=== PATIENT | female | born 1950 | race Asian ===

== ENCOUNTER 2019-11-19 11:44 | Inpatient (IN) | payer MEDICAID, MEDICARE, OTHER ==
[2019-11-19 12:18] VITALS: BP 148/79
[2019-11-19] MEDS ORDERED: Magnesium Hydroxide (MOM) 30 mL UDC PO PRN (12:38)
[2019-11-19] MEDS ORDERED: Acetaminophen 500 MG TAB PO PRN (12:38)
[2019-11-19] MEDS ORDERED: Maalox 30 mL Cup PO PRN (12:38)
[2019-11-19 15:37] LABS: CHOLESTEROL 208 mg/dL (<200); LDL CHOLESTEROL 122 mg/dL (0-129); TRIGLYCERIDES 347 mg/dL (30-150)
[2019-11-19] MEDS ORDERED: GLUCAGON HCl 1 MG KIT IM PRN (19:33)
--- NOTE | 2019-11-19 21:54 | Psychiatric Evaluation ---
DATE OF SERVICE: 11/19/2019 IDENTIFYING INFORMATION: The patient is a 69-year-old female. CHIEF COMPLAINT: No answer. I don't know." HISTORY OF PRESENT ILLNESS: The patient is a poor historian. The patient was admitted on a hold for danger to others. She was agitated, striking out at staff, noncompliant, non-redirectable, and conserved by public guardian of the [facility] with medical history of type 2 diabetes, asthma, hyperlipidemia, hypertension, cardiac arrhythmia. She has a history of schizophrenia, major depression. The patient was fully ambulatory and independent with her ADLs with clear speech. The patient was oriented x2, disorganized thoughts upon admission. Poor eye contact, labile, angry, hostile, argumentative, resistant to care, loud, paranoid. When I tried talk to the patient, she was very irritable, answered most questions, "I don't know". She can tell me where she is, what the date, why she is here. She reports she does not sleep well, eats well. She denies prior suicide attempt; however, she is a poor historian. PAST PSYCHIATRIC HISTORY: Schizophrenia and depression. The patient with history of agitation, striking at staff, aggressive. She is conserved by the public guardian. MEDICAL HISTORY: Deferred to Dr. De Leon. ALLERGIES: THE PATIENT IS ALLERGIC TO AMANTADINE. SUBSTANCE ABUSE HISTORY: The patient denies; however, she is a poor historian. FAMILY AND SOCIAL HISTORY: The patient reports she has two girls one is 32 and could not tell me the other girl, but she cannot tell me her age. The patient was unable to tell if she has any family psychiatric disorder, cannot tell me how far she went to school. She was not answering, internally preoccupied. MENTAL STATUS EXAMINATION: The patient is appropriately dressed, not very groomed. She was loud, irritable, answering most questions, "I don't know or would not answer." She is, why she is here, where she is the date, ____ for her being here. She denies prior suicide attempts. Denies substance abuse; however, she is a poor historian. She is not sleeping, not eating. She was striking at staff. She was chocking at staff, calling the staff names, calling them bitches. She is unpredictable, impulsive, and unable to participate in meaningful conversation. Therefore, I cannot test her memory and concentration and intelligence because of her psychosis and poor cooperation. When asked about suicide and homicide, she denies this is a poor historian. Her insight about her illness is poor, does not realize about her problem s. Judgment is poor with her psychotic, agitated behavior. IMPRESSION: Schizoaffective disorder, bipolar type. MEDICAL DIAGNOSIS: As per medical doctor. ASSETS: She is accepting treatment. Negative poor coping skills, psychotic, unable to make safe plan for self-care. PLAN: The patient will be started back on her medication, which is olanzapine and Depakote. We will do group therapy, milieu therapy, and individual therapy. ESTIMATED LENGTH OF STAY: 3-7 days. DISCHARGE CRITERIA: Decreasing psychosis, agitation after discharge, outpatient treatment. JOB# [id number]
[2019-11-20] MEDS ORDERED: INSULIN LISPRO SLIDING SCALE 100 UNITS/ML UNIT SUBQ SCH (07:30)
[2019-11-20 08:06] LABS: A1C 11.8 % (4.8-5.6)
[2019-11-20] MEDS: Nicotine 14 mg/24 hr Tdm TD SCH (08:38)
[2019-11-20] MEDS: Multivitamin Tab PO SCH (08:38)
[2019-11-20] MEDS ORDERED: GLUCAGON HCl 1 MG KIT IM PRN (11:14)
[2019-11-20] MEDS: INSULIN LISPRO SLIDING SCALE 100 UNITS/ML UNIT SUBQ SCH ×2 (11:23→17:21)
--- NOTE | 2019-11-20 21:32 | Progress Notes ---
DATE: 11/20/2019 IDENTIFYING DATA: A 69-year-old female who presents agitated, striking out at staff, medication compliant and redirectable. Today on [id number] evaluation, the patient reports that she has no idea why she is here. When attempting to validate her emotions and redirecting her, what led to the hospitalization, she becomes more agitated, mostly looking at the floor, disengaged in the interview. CURRENT MEDICATIONS: Reconciliation review includes Depakote and olanzapine 15 b.i.d. MENTAL STATUS EXAMINATION: Poor historian, disorganized thought process, derails in conversation. ASSESSMENT AND PLAN: History of schizoaffective disorder. His current medication was recently resumed without complications or side effects. We will continue monitoring and evaluating, and obtain more collateral baseline information. She continues to be impulsive and agitated. JOB# [id number]
[2019-11-21] MEDS: INSULIN LISPRO SLIDING SCALE 100 UNITS/ML UNIT SUBQ SCH ×3 (07:05→16:40)
[2019-11-21] MEDS: Multivitamin Tab PO SCH (09:05)
[2019-11-21] MEDS: Nicotine 14 mg/24 hr Tdm TD SCH (09:29)
--- NOTE | 2019-11-21 10:20 | Progress Notes ---
DATE: 11/21/[address] Auguste. Today on [id number] evaluation ____ the patient reports that everything is fine and then within a few minutes later, the patient starts pacing after the medical doctor, needs a lot of redirection, easily agitated, anger. MENTAL STATUS EXAMINATION: Unpredictable, labile, easily agitated, at times verbally aggressive. ASSESSMENT AND PLAN: Dementia with behavior disturbances, who continues to be unpredictable as evident by the patient's lack of impulse control, ____ irritability and needs redirection. JOB# [id number]
[2019-11-21] MEDS ORDERED: Insulin Glargine 100 units/ml 10ml Vial SUBQ STA (13:14)
--- NOTE | 2019-11-21 13:14 | History & Physical ---
ADMIT DATE: CHIEF COMPLAINT: Agitation. HISTORY OF PRESENT ILLNESS: We have a 69-year-old female with diabetes, hypertension, who was transferred here for agitation and psychosis. The patient has diabetes, history of cardiac arrhythmia. The patient denies any chest pain, shortness of breath. No nausea, vomiting, abdominal pain, diarrhea. PAST MEDICAL HISTORY: 1. Diabetes. 2. Hypertension. 3. History of cardiac arrhythmia, on amiodarone. PAST SURGICAL HISTORY: None. MEDICATIONS: List reviewed. ALLERGIES: None. SOCIAL HISTORY: Tobacco, IV drugs, ETOH negative. PHYSICAL EXAMINATION: VITAL SIGNS: Temperature is 97.5, pulse 72, respirations 20, blood pressure is 130/60. HEENT: Normocephalic, atraumatic head exam. NECK: Supple. CARDIOVASCULAR: Regular rate and rhythm. LUNGS: Decreased breath sounds. ABDOMEN: Soft, nontender. EXTREMITIES: No edema, cyanosis or clubbing. Cranial nerve exam grossly intact ASSESSMENT AND PLAN: 1. Diabetes. 2. Hypertension. 3. Cardiac arrhythmia. 4. Hyponatremia. 5. Nicotine dependency. The patient will be continued on Levemir 40 units subcutaneous daily. The patient will continue with Accu-Cheks q.a.c. and at bedtime. The patient will continue sodium tablets 2 grams p.o. b.i.d. for the hyponatremia. JOB# [id number] ANGELES
[2019-11-21] MEDS ORDERED: Insulin Glargine 100 units/ml 10ml Vial SUBQ SCH (13:15)
[2019-11-21] MEDS ORDERED: Non-Formulary Item 1 EA (Glipizide [Glipizide] 10 MG) PO SCH (16:30)
[2019-11-21] MEDS: Insulin Detemir 100 units/mL 10mL Vial SUBQ SCH (21:56)
[2019-11-22] MEDS: INSULIN LISPRO SLIDING SCALE 100 UNITS/ML UNIT SUBQ SCH ×4 (06:35→16:18)
[2019-11-22] MEDS: Multivitamin Tab PO SCH (08:12)
[2019-11-22] MEDS: Nicotine 14 mg/24 hr Tdm TD SCH (08:16)
--- NOTE | 2019-11-22 12:07 | Progress Notes ---
DATE: 11/22/2019 Case was discussed with staff of the patient, reviewed records. The patient continues to be confused, continues to need redirection. Continues to have poor insight, unable to tell me the reason for her coming here. The patient apparently was very agitated, aggressive prior to her coming here, striking out at staff, noncompliant, non-redirectable. She is compliant with the medication with no side effects, no sedation, no nausea, no extrapyramidal symptoms. Continues to look disheveled, disorganized, internally preoccupied, but she can carry on a conversation better, was restarted back on her medication, Depakote 125 mg twice a day. She is also diabetic. Also, many medication of her medical condition, metformin, insulin. She is on Zyprexa 10 mg twice a day. No side effects with the medication, no sedation, no nausea, no extrapyramidal symptoms. We will continue outpatient group therapy, milieu therapy, adjust medication as needed. [facility]# [id number]
[2019-11-22 13:44] LABS: % NEUTROPHILS 61.3 % (40-70); EOSINOPHILS % (AUTO) 1.7 % (0-4); HEMATOCRIT 39.6 % (36-48); HEMOGLOBIN 13.3 g/dL (12.0-16.0); LYMPHOCYTES % (AUTO) 26.1 % (20.5-51.5); MEAN CORPUSCULAR HEMOGLOBIN 31 pg (27-31); MEAN CORPUSCULAR HGB CONC 34 % (32-36); MEAN CORPUSCULAR VOLUME 94 fL (79.0-98.0); MONOCYTES % (AUTO) 9.7 % (1.7-9.3); PLATELET COUNT 439 K/uL (130-430); RED BLOOD COUNT 4.24 MIL/uL (4.2-6.2); WHITE BLOOD COUNT 7.4 K/uL (4.8-10.8)
[2019-11-22 13:45] LABS: BASOPHILS # (AUTO) 0.1 K/uL (0.0-0.2); BASOPHILS % (AUTO) 1.2 % (0.0-2.0); EOSINOPHILS # (AUTO) 0.1 K/uL (0.0-0.4); LYMPHOCYTES # (AUTO) 1.9 K/uL (1.0-5.5); MONOCYTES # (AUTO) 0.7 K/uL (0.0-1.0); NEUTROPHILS # (AUTO) 4.6 K/uL (1.8-7.7)
[2019-11-22 13:56] LABS: CREATININE - SERUM 0.68 mg/dL (0.70-1.30); TOTAL PROTEIN,SERUM 8.2 g/dL (6.4-8.3)
[2019-11-22 13:57] LABS: BILIRUBIN,TOTAL 0.2 mg/dL (0.0-1.0)
--- NOTE | 2019-11-22 14:52 | Internal Medicine Prog Note ---
Internal Medicine Subjective - Subjective Service Date: 11/22/19 Patient seen and examined:: without staff Patient is:: awake Per staff patient has:: no adverse event, no episodes of fall (no polyuria, no polyphagia, no polydypsia) Internal Medicine Objective - Results Result Diagrams: 11/22/19 09:34 11/22/19 09:34 Recent Labs: Laboratory Last Values WBC 7.4 K/uL (4.8-10.8) 11/22/19 09:34 RBC 4.24 MIL/uL (4.2-6.2) 11/22/19 09:34 Hgb 13.3 g/dL (12.0-16.0) 11/22/19 09:34 Hct 39.6 % (36-48) 11/22/19 09:34 MCV 94 fL (79.0-98.0) 11/22/19 09:34 MCH 31 pg (27-31) 11/22/19 09:34 MCHC 34 % (32-36) 11/22/19 09:34 RDW 14.0 % (9.0-15.0) 11/22/19 09:34 Plt Count 439 K/uL (130-430) H 11/22/19 09:34 MPV 8.7 fl (7.4-10.4) 11/22/19 09:34 Neut % (Auto) 61.3 % (40-70) 11/22/19 09:34 Lymph % (Auto) 26.1 % (20.5-51.5) 11/22/19 09:34 Coffey % (Auto) 9.7 % (1.7-9.3) H 11/22/19 09:34 Eos % (Auto) 1.7 % (0-4) 11/22/19 09:34 Baso % (Auto) 1.2 % (0.0-2.0) 11/22/19 09:34 Neut # (Auto) 4.6 K/uL (1.8-7.7) 11/22/19 09:34 Lymph # (Auto) 1.9 K/uL (1.0-5.5) 11/22/19 09:34 Coffey # (Auto) 0.7 K/uL (0.0-1.0) 11/22/19 09:34 Eos # (Auto) 0.1 K/uL (0.0-0.4) 11/22/19 09:34 Baso # (Auto) 0.1 K/uL (0.0-0.2) 11/22/19 09:34 Sodium 123 mmol/L (136-145) L 11/22/19 09:34 Potassium 5.0 mmol/L (3.5-5.1) 11/22/19 09:34 Chloride 90 mmol/L (98-107) L 11/22/19 09:34 Carbon Dioxide 26 mmol/L (23-29) 11/22/19 09:34 Anion Gap 12 (5-15) 11/22/19 09:34 BUN 20 mg/dL (8-21) 11/22/19 09:34 Creatinine 0.68 mg/dL (0.70-1.30) L 11/22/19 09:34 Glucose 288 mg/dL (70-99) H 11/22/19 09:34 POC Glucose 352 MG/DL (70 - 105) H 11/22/19 11:02 Calcium 10.0 mg/dL (8.4-10.2) 11/22/19 09:34 Total Bilirubin 0.2 mg/dL (0.0-1.0) 11/22/19 09:34 AST 44 U/L (10-37) H 11/22/19 09:34 ALT 59 U/L (12-78) 11/22/19 09:34 Alkaline Phosphatase 128 U/L (46-116) H 11/22/19 09:34 Total Protein 8.2 g/dL (6.4-8.3) 11/22/19 09:34 Albumin 3.6 g/dL (3.4-5.0) 11/22/19 09:34 Triglycerides 347 mg/dL (30-150) H 11/19/19 13:15 Cholesterol 208 mg/dL (<200) H 11/19/19 13:15 LDL Cholesterol 122 mg/dL (0-129) 11/19/19 13:15 HDL Cholesterol 53 mg/dL (>55) L 11/19/19 13:15 Coronavirus (PCR) NOT DETECTED (NOT DETECTD) 11/19/19 13:15 - Physical Exam Vitals and I&O: Vital Signs Temp 98 F 11/21/19 14:36 Pulse 70 11/22/19 08:12 Resp 18 11/22/19 07:57 BP 95/62 11/21/19 14:36 Pulse Ox 97 11/21/19 14:36 Intake & Output 11/21/19 11/22/19 11/22/19 18:59 06:59 18:59 Intake Total 160 Balance 160 Intake: Oral 160 Other: # Voids 1 # Bowel Movements 0 Active Medications: Current Medications Acetaminophen (Tylenol) 650 mg PO Q4H PRN PRN Reason: Pain (Mild 1-3) Stop: 01/18/20 12:37 Acetaminophen (Tylenol Extra Strength) 1,000 mg PO Q6H PRN PRN Reason: Pain (Moderate 4-6) Stop: 01/18/20 12:37 Al Hydrox/Mg Hydrox/Simethicone (Maalox) 30 ml PO Q4HR PRN PRN Reason: GI DISTRESS Stop: 01/18/20 12:37 Amiodarone HCl (Cordarone) 200 mg PO BID [facility] Stop: 01/20/20 16:59 Last Admin: 11/22/19 08:12 Dose: 200 mg Dextrose (Glutose 40%) 18.75 gm PO PRN PRN PRN Reason: Blood Glucose less than 70 Stop: 01/18/20 19:32 Dextrose (Glutose 40%) 18.75 gm PO PRN PRN PRN Reason: BS Below 70 if tolerate po Stop: 01/19/20 11:13 Divalproex Sodium (Depakote Dr) 125 mg PO BID [facility]; Protocol Stop: 01/18/20 16:59 Last Admin: 11/22/19 08:12 Dose: 125 mg Gemfibrozil (Lopid) 600 mg PO BID [facility] Stop: 01/20/20 16:59 Last Admin: 11/22/19 08:12 Dose: 600 mg [facility] Stop: 01/18/20 16:29 Last Admin: 11/22/19 07:15 Dose: Not Given Glucagon (Glucagen) 1 mg IM PRN PRN PRN Reason: Blood Glucose less than 70 Stop: 01/18/20 19:32 Glucagon (Glucagen) 1 mg IM PRN PRN PRN Reason: BS Below 70 if not tolerate po Stop: 01/19/20 11:13 Ibuprofen (Motrin) 400 mg PO Q4H PRN PRN Reason: Pain (Severe 7-10) Stop: 01/18/20 12:37 Insulin Detemir (Levemir Insulin) 40 units SUBQ HS [facility] Stop: 01/20/20 20:59 Last Admin: 11/21/19 21:56 Dose: Not Given Insulin Human Lispro (Humalog Insulin Sliding Scale) 0 units SUBQ AC [facility]; Protocol Stop: 01/19/20 11:29 Last Admin: 11/22/19 11:06 Dose: 15 units Lorazepam (Ativan) 0.5 mg PO Q4HR PRN; Protocol PRN Reason: Anxiety Stop: 12/19/19 12:37 Magnesium Hydroxide (Milk Of Magnesia) 30 ml PO HS PRN PRN Reason: Constipation Metformin HCl (Glucophage) 850 mg PO TIDWM [facility] Stop: 01/18/20 16:59 Last Admin: 11/22/19 12:09 Dose: 850 mg Multivitamins/Vitamin C (Theragran) 1 tab PO DAILY [facility] Stop: 01/19/20 08:59 Last Admin: 11/22/19 08:12 Dose: 1 tab Nicotine (Nicotine Transdermal System) 14 mg TD DAILY [facility] Stop: 01/19/20 08:59 Last Admin: 11/22/19 08:16 Dose: Not Given Olanzapine (Zyprexa) 15 mg PO BID [facility]; Protocol Stop: 01/18/20 16:59 Last Admin: 11/22/19 08:12 Dose: 15 mg Sodium Chloride (Nacl Tab) 2 gm PO BID [facility] Stop: 01/20/20 08:59 Last Admin: 11/22/19 08:12 Dose: 2 gm Zolpidem Tartrate (Ambien) 5 mg PO HS PRN PRN Reason: Insomnia Stop: 01/18/20 12:37 General: weak HEENT: NC/AT, PERRLA Neck: Supple Lungs: CTAB Cardiovascular: RRR, Normal S1, Normal S2 Abdomen: soft Extremities: clear Internal Medicine Assmt/Plan - Assessment Assessment: 1. DM 2. HTN 3. Hyponatremia - Plan Plan: continue glucotrol and glucophage reviewed blood sugar diary d/w r.n. reviewed complete medical records
[2019-11-22] MEDS: Insulin Detemir 100 units/mL 10mL Vial SUBQ SCH (21:25)
[2019-11-23] MEDS: INSULIN LISPRO SLIDING SCALE 100 UNITS/ML UNIT SUBQ SCH ×3 (06:57→17:11)
[2019-11-23] MEDS: Multivitamin Tab PO SCH (09:06)
[2019-11-23] MEDS: Nicotine 14 mg/24 hr Tdm TD SCH (09:32)
--- NOTE | 2019-11-23 11:14 | Internal Medicine Prog Note ---
Internal Medicine Subjective - Subjective Service Date: 11/23/19 Patient seen and examined:: without staff Patient is:: awake Per staff patient has:: no adverse event, no episodes of fall (no polyuria, no polyphagia, no polydypsia) Internal Medicine Objective - Results Result Diagrams: 11/22/19 09:34 11/22/19 09:34 Recent Labs: Laboratory Last Values WBC 7.4 K/uL (4.8-10.8) 11/22/19 09:34 RBC 4.24 MIL/uL (4.2-6.2) 11/22/19 09:34 Hgb 13.3 g/dL (12.0-16.0) 11/22/19 09:34 Hct 39.6 % (36-48) 11/22/19 09:34 MCV 94 fL (79.0-98.0) 11/22/19 09:34 MCH 31 pg (27-31) 11/22/19 09:34 MCHC 34 % (32-36) 11/22/19 09:34 RDW 14.0 % (9.0-15.0) 11/22/19 09:34 Plt Count 439 K/uL (130-430) H 11/22/19 09:34 MPV 8.7 fl (7.4-10.4) 11/22/19 09:34 Neut % (Auto) 61.3 % (40-70) 11/22/19 09:34 Lymph % (Auto) 26.1 % (20.5-51.5) 11/22/19 09:34 Larue % (Auto) 9.7 % (1.7-9.3) H 11/22/19 09:34 Eos % (Auto) 1.7 % (0-4) 11/22/19 09:34 Baso % (Auto) 1.2 % (0.0-2.0) 11/22/19 09:34 Neut # (Auto) 4.6 K/uL (1.8-7.7) 11/22/19 09:34 Lymph # (Auto) 1.9 K/uL (1.0-5.5) 11/22/19 09:34 Larue # (Auto) 0.7 K/uL (0.0-1.0) 11/22/19 09:34 Eos # (Auto) 0.1 K/uL (0.0-0.4) 11/22/19 09:34 Baso # (Auto) 0.1 K/uL (0.0-0.2) 11/22/19 09:34 Sodium 123 mmol/L (136-145) L 11/22/19 09:34 Potassium 5.0 mmol/L (3.5-5.1) 11/22/19 09:34 Chloride 90 mmol/L (98-107) L 11/22/19 09:34 Carbon Dioxide 26 mmol/L (23-29) 11/22/19 09:34 Anion Gap 12 (5-15) 11/22/19 09:34 BUN 20 mg/dL (8-21) 11/22/19 09:34 Creatinine 0.68 mg/dL (0.70-1.30) L 11/22/19 09:34 Glucose 288 mg/dL (70-99) H 11/22/19 09:34 POC Glucose 130 MG/DL (70 - 105) H 11/22/19 16:10 Calcium 10.0 mg/dL (8.4-10.2) 11/22/19 09:34 Total Bilirubin 0.2 mg/dL (0.0-1.0) 11/22/19 09:34 AST 44 U/L (10-37) H 11/22/19 09:34 ALT 59 U/L (12-78) 11/22/19 09:34 Alkaline Phosphatase 128 U/L (46-116) H 11/22/19 09:34 Total Protein 8.2 g/dL (6.4-8.3) 11/22/19 09:34 Albumin 3.6 g/dL (3.4-5.0) 11/22/19 09:34 Triglycerides 347 mg/dL (30-150) H 11/19/19 13:15 Cholesterol 208 mg/dL (<200) H 11/19/19 13:15 LDL Cholesterol 122 mg/dL (0-129) 11/19/19 13:15 HDL Cholesterol 53 mg/dL (>55) L 11/19/19 13:15 Coronavirus (PCR) NOT DETECTED (NOT DETECTD) 11/19/19 13:15 - Physical Exam Vitals and I&O: Vital Signs Temp 96.8 F 11/23/19 06:59 Pulse 71 11/23/19 09:06 Resp 19 11/23/19 06:59 BP 122/66 11/23/19 06:59 Pulse Ox 98 11/23/19 06:59 Intake & Output 11/22/19 11/23/19 11/23/19 18:59 06:59 18:59 Intake Total 1200 Balance 1200 Intake: Oral 1200 Other: # Voids 4 # Bowel Movements 1 Active Medications: Current Medications Acetaminophen (Tylenol) 650 mg PO Q4H PRN PRN Reason: Pain (Mild 1-3) Stop: 01/18/20 12:37 Acetaminophen (Tylenol Extra Strength) 1,000 mg PO Q6H PRN PRN Reason: Pain (Moderate 4-6) Stop: 01/18/20 12:37 Al Hydrox/Mg Hydrox/Simethicone (Maalox) 30 ml PO Q4HR PRN PRN Reason: GI DISTRESS Stop: 01/18/20 12:37 Amiodarone HCl (Cordarone) 200 mg PO BID [facility] Stop: 01/20/20 16:59 Last Admin: 11/23/19 09:06 Dose: 200 mg Dextrose (Glutose 40%) 18.75 gm PO PRN PRN PRN Reason: BS Below 70 if tolerate po Stop: 01/19/20 11:13 Divalproex Sodium (Depakote Dr) 125 mg PO BID [facility]; Protocol Stop: 01/18/20 16:59 Last Admin: 11/23/19 09:06 Dose: 125 mg Gemfibrozil (Lopid) 600 mg PO BID [facility] Stop: 01/20/20 16:59 Last Admin: 11/23/19 09:06 Dose: 600 mg [facility] Stop: 01/18/20 16:29 Last Admin: 11/23/19 07:00 Dose: Not Given Glucagon (Glucagen) 1 mg IM PRN PRN PRN Reason: BS Below 70 if not tolerate po Stop: 01/19/20 11:13 Ibuprofen (Motrin) 400 mg PO Q4H PRN PRN Reason: Pain (Severe 7-10) Stop: 01/18/20 12:37 Insulin Detemir (Levemir Insulin) 40 units SUBQ HS [facility] Stop: 01/20/20 20:59 Last Admin: 11/22/19 21:25 Dose: Not Given Insulin Human Lispro (Humalog Insulin Sliding Scale) 0 units SUBQ AC [facility]; Protocol Stop: 01/19/20 11:29 Last Admin: 11/23/19 06:57 Dose: Not Given Lorazepam (Ativan) 0.5 mg PO Q4HR PRN; Protocol PRN Reason: Anxiety Stop: 12/19/19 12:37 Magnesium Hydroxide (Milk Of Magnesia) 30 ml PO HS PRN PRN Reason: Constipation Metformin HCl (Glucophage) 850 mg PO TIDWM [facility] Stop: 01/18/20 16:59 Last Admin: 11/23/19 10:44 Dose: Not Given Multivitamins/Vitamin C (Theragran) 1 tab PO DAILY [facility] Stop: 01/19/20 08:59 Last Admin: 11/23/19 09:06 Dose: 1 tab Nicotine (Nicotine Transdermal System) 14 mg TD DAILY [facility] Stop: 01/19/20 08:59 Last Admin: 11/23/19 09:32 Dose: Not Given Olanzapine (Zyprexa) 15 mg PO BID [facility]; Protocol Stop: 01/18/20 16:59 Last Admin: 11/23/19 09:06 Dose: 15 mg Sodium Chloride (Nacl Tab) 2 gm PO BID [facility] Stop: 01/20/20 08:59 Last Admin: 11/23/19 09:06 Dose: 2 gm Zolpidem Tartrate (Ambien) 5 mg PO HS PRN PRN Reason: Insomnia Stop: 01/18/20 12:37 General: weak HEENT: NC/AT, PERRLA Neck: Supple Lungs: CTAB Cardiovascular: RRR, Normal S1, Normal S2 Abdomen: soft Extremities: clear Internal Medicine Assmt/Plan - Assessment Assessment: 1. DM 2. HTN 3. Hyponatremia - Plan Plan: repeat bmp continue glucotrol and glucophage reviewed blood sugar diary d/w r.n. reviewed complete medical records
--- NOTE | 2019-11-23 21:22 | Progress Notes ---
DATE: 11/23/2019 SUBJECTIVE: Case was discussed with staff of the patient, reviewed records. The patient continues to be confused, unable to make safe plan for self-care. She wants to go home because she wants to smoke. She is not sure where she is, unable to tell me the date. Continues to be easily agitated. No side effects with the medication, no sedation, no nausea, no extrapyramidal symptoms. ____ Zyprexa 10 mg twice a day. I am not sure if she is confused because she is psychotic or she is demented because of her inability to participate in meaningful conversation. I will continue outpatient group therapy, milieu therapy, and adjust medications as needed. JOB# [id number]
[2019-11-23] MEDS: Insulin Detemir 100 units/mL 10mL Vial SUBQ SCH (21:27)
[2019-11-24] MEDS: INSULIN LISPRO SLIDING SCALE 100 UNITS/ML UNIT SUBQ SCH ×3 (06:45→16:40)
[2019-11-24] MEDS: Nicotine 14 mg/24 hr Tdm TD SCH ×2 (08:43→08:54)
[2019-11-24] MEDS: Multivitamin Tab PO SCH (08:44)
--- NOTE | 2019-11-24 14:26 | Progress Notes ---
DATE: 11/24/2019 Case was discussed with staff of the patient, reviewed records. The patient continues to be confused, unable to tell the date, where she is, why she is here. Demanding to leave because she cannot smoke here. She has been compliant with the medication with no side effects, no sedation, no nausea, no extrapyramidal symptoms. She came from a nursing facility. She was very aggressive prior to her coming here and her agitation is not as prominent. We will continue outpatient group therapy, milieu therapy, and adjust medications as needed. JOB# [id number]
[2019-11-24] MEDS: Insulin Detemir 100 units/mL 10mL Vial SUBQ SCH (21:06)
[2019-11-25] MEDS: INSULIN LISPRO SLIDING SCALE 100 UNITS/ML UNIT SUBQ SCH ×3 (06:50→16:25)
[2019-11-25] MEDS: Multivitamin Tab PO SCH (08:26)
[2019-11-25] MEDS: Nicotine 14 mg/24 hr Tdm TD SCH (08:47)
--- NOTE | 2019-11-25 19:08 | Progress Notes ---
DATE: 11/25/2019 Case was discussed with staff of the patient, reviewed records. The patient preoccupied with discharge. She cannot tell me the date. She cannot tell me why she is here. She reports she lives in some facility. Unable to tell me how is her relation with her kids, unable to make safe plan for self-care, unpredictable, impulsive, and needing redirection. No side effects with the medication, no sedation, no nausea, or no extrapyramidal symptoms. We will continue outpatient group therapy, milieu therapy, or adjust medication as needed. JOB# [id number]
[2019-11-25] MEDS: Insulin Glargine 100 units/ml 10ml Vial SUBQ SCH (21:07)
[2019-11-26] MEDS: INSULIN LISPRO SLIDING SCALE 100 UNITS/ML UNIT SUBQ SCH ×4 (06:35→16:34)
[2019-11-26] MEDS: Multivitamin Tab PO SCH (08:40)
[2019-11-26] MEDS: Nicotine 14 mg/24 hr Tdm TD SCH (08:41)
[2019-11-26] MEDS: Insulin Glargine 100 units/ml 10ml Vial SUBQ SCH ×2 (21:13→21:21)
--- NOTE | 2019-11-26 21:15 | Progress Notes ---
DATE: 11/26/2019 Case was discussed with staff of the patient and reviewed records. The patient apparently has a public guardian. She lives at [place]. She is sleeping better, eating better. She has not been acting out much; however, she is still preoccupied with discharging, she wants to leave because she said she wanted to smoke. No side effects to the medication, no sedation, no nausea, and no extrapyramidal symptoms. I will be increasing her Depakote to 250 mg twice a day and we will continue to work with the patient in group therapy, milieu therapy, and adjust medications as needed. JOB# [id number]
[2019-11-27] MEDS: INSULIN LISPRO SLIDING SCALE 100 UNITS/ML UNIT SUBQ SCH ×3 (06:33→16:06)
[2019-11-27] MEDS: Multivitamin Tab PO SCH (09:09)
[2019-11-27] MEDS: Nicotine 14 mg/24 hr Tdm TD SCH (09:15)
--- NOTE | 2019-11-27 17:01 | Progress Notes ---
DATE: 11/27/2019 Case was discussed with staff of the patient, reviewed records. The patient continues to have poor insight, stay to herself, internally preoccupied. She is conserved, unable to make safe plan for her self-care, unpredictable, impulsive, very poor insight about _ her aggressive behavior at the nursing facility; however, she has been isolating herself here. We are trying to work on discharge plan. No side effects with the medication, no sedation, no nausea, no extrapyramidal symptoms. Tolerating increase in Depakote to 250 mg twice a day. We will continue outpatient group therapy, milieu therapy, adjust medication as needed. JOB# [id number] [email or web address]
[2019-11-27] MEDS: Insulin Glargine 100 units/ml 10ml Vial SUBQ SCH (21:00)
[2019-11-28] MEDS: INSULIN LISPRO SLIDING SCALE 100 UNITS/ML UNIT SUBQ SCH ×3 (06:43→15:59)
[2019-11-28] MEDS: Multivitamin Tab PO SCH (09:26)
[2019-11-28] MEDS: Nicotine 14 mg/24 hr Tdm TD SCH (09:28)
[2019-11-28] MEDS: Insulin Glargine 100 units/ml 10ml Vial SUBQ SCH (20:20)
--- NOTE | 2019-11-28 21:29 | Progress Notes ---
DATE: 11/28/2019 Case was discussed with staff of the patient, reviewed records. The patient continues to isolate herself. Continues to have poor insight, continues to be unable to make safe plan for self-care. In general, she is tolerating increase in medication with no side effects. She is sleeping better, eating better. No acting out behavior. We are working also on discharge plan. We will continue to work with the patient in group therapy, milieu therapy, adjust medication as needed. JOB# [id number]
[2019-11-29] MEDS: INSULIN LISPRO SLIDING SCALE 100 UNITS/ML UNIT SUBQ SCH ×3 (06:43→16:30)
[2019-11-29] MEDS: Nicotine 14 mg/24 hr Tdm TD SCH (08:45)
[2019-11-29] MEDS: Multivitamin Tab PO SCH (08:46)
--- NOTE | 2019-11-29 20:06 | Progress Notes ---
DATE: 11/29/2019 The patient is more or less doing the same. Sleeping well and eating well. No acting out behavior. No suicidal ideation, no homicidal ideation. Still confused, unable to make safe plan for self-care, preoccupied with leaving so she can smoke, but no acting out behavior. She continues to not act out. I will be working on discharge plan to send her back to the facility where she was at, a nursing facility. She is conserved. We will continue to work with the patient in group therapy, milieu therapy, and adjust the medication as needed. JOB# [id number]
[2019-11-29] MEDS: Insulin Glargine 100 units/ml 10ml Vial SUBQ SCH (21:23)
[2019-11-30] MEDS: INSULIN LISPRO SLIDING SCALE 100 UNITS/ML UNIT SUBQ SCH ×2 (06:47→11:31)
[2019-11-30] MEDS: Multivitamin Tab PO SCH (08:39)
[2019-11-30] MEDS: Nicotine 14 mg/24 hr Tdm TD SCH (08:39)
--- NOTE | 2019-11-30 14:00 | Internal Medicine Prog Note ---
Internal Medicine Subjective - Subjective Service Date: 11/30/19 Patient seen and examined:: without staff Patient is:: awake Per staff patient has:: no adverse event, no episodes of fall (no polyuria, no polyphagia, no polydypsia) Internal Medicine Objective - Results Result Diagrams: 11/22/19 09:34 11/22/19 09:34 Recent Labs: Laboratory Last Values WBC 7.4 K/uL (4.8-10.8) 11/22/19 09:34 RBC 4.24 MIL/uL (4.2-6.2) 11/22/19 09:34 Hgb 13.3 g/dL (12.0-16.0) 11/22/19 09:34 Hct 39.6 % (36-48) 11/22/19 09:34 MCV 94 fL (79.0-98.0) 11/22/19 09:34 MCH 31 pg (27-31) 11/22/19 09:34 MCHC 34 % (32-36) 11/22/19 09:34 RDW 14.0 % (9.0-15.0) 11/22/19 09:34 Plt Count 439 K/uL (130-430) H 11/22/19 09:34 MPV 8.7 fl (7.4-10.4) 11/22/19 09:34 Neut % (Auto) 61.3 % (40-70) 11/22/19 09:34 Lymph % (Auto) 26.1 % (20.5-51.5) 11/22/19 09:34 Crook % (Auto) 9.7 % (1.7-9.3) H 11/22/19 09:34 Eos % (Auto) 1.7 % (0-4) 11/22/19 09:34 Baso % (Auto) 1.2 % (0.0-2.0) 11/22/19 09:34 Neut # (Auto) 4.6 K/uL (1.8-7.7) 11/22/19 09:34 Lymph # (Auto) 1.9 K/uL (1.0-5.5) 11/22/19 09:34 Crook # (Auto) 0.7 K/uL (0.0-1.0) 11/22/19 09:34 Eos # (Auto) 0.1 K/uL (0.0-0.4) 11/22/19 09:34 Baso # (Auto) 0.1 K/uL (0.0-0.2) 11/22/19 09:34 Sodium 123 mmol/L (136-145) L 11/22/19 09:34 Potassium 5.0 mmol/L (3.5-5.1) 11/22/19 09:34 Chloride 90 mmol/L (98-107) L 11/22/19 09:34 Carbon Dioxide 26 mmol/L (23-29) 11/22/19 09:34 Anion Gap 12 (5-15) 11/22/19 09:34 BUN 20 mg/dL (8-21) 11/22/19 09:34 Creatinine 0.68 mg/dL (0.70-1.30) L 11/22/19 09:34 Glucose 288 mg/dL (70-99) H 11/22/19 09:34 POC Glucose 140 MG/DL (70 - 105) H 11/28/19 15:55 Hemoglobin A1c 11.8 % (4.8-5.6) H 11/19/19 13:15 Calcium 10.0 mg/dL (8.4-10.2) 11/22/19 09:34 Total Bilirubin 0.2 mg/dL (0.0-1.0) 11/22/19 09:34 AST 44 U/L (10-37) H 11/22/19 09:34 ALT 59 U/L (12-78) 11/22/19 09:34 Alkaline Phosphatase 128 U/L (46-116) H 11/22/19 09:34 Total Protein 8.2 g/dL (6.4-8.3) 11/22/19 09:34 Albumin 3.6 g/dL (3.4-5.0) 11/22/19 09:34 Triglycerides 347 mg/dL (30-150) H 11/19/19 13:15 Cholesterol 208 mg/dL (<200) H 11/19/19 13:15 LDL Cholesterol 122 mg/dL (0-129) 11/19/19 13:15 HDL Cholesterol 53 mg/dL (>55) L 11/19/19 13:15 Coronavirus (PCR) NOT DETECTED (NOT DETECTD) 11/19/19 13:15 - Physical Exam Vitals and I&O: Vital Signs Temp 97.3 F 11/30/19 04:51 Pulse 66 11/30/19 08:38 Resp 18 11/30/19 04:51 BP 122/68 11/30/19 04:51 Pulse Ox 96 11/30/19 04:51 Intake & Output 11/29/19 11/30/19 11/30/19 18:59 06:59 18:59 Intake Total 1200 240 Balance 1200 240 Intake: Oral 1200 240 Other: # Voids 4 2 # Bowel Movements 1 0 Active Medications: Current Medications Acetaminophen (Tylenol) 650 mg PO Q4H PRN PRN Reason: Pain (Mild 1-3) Stop: 01/18/20 12:37 Acetaminophen (Tylenol Extra Strength) 1,000 mg PO Q6H PRN PRN Reason: Pain (Moderate 4-6) Stop: 01/18/20 12:37 Al Hydrox/Mg Hydrox/Simethicone (Maalox) 30 ml PO Q4HR PRN PRN Reason: GI DISTRESS Stop: 01/18/20 12:37 Amiodarone HCl (Cordarone) 200 mg PO BID [facility], [facility]1983 Stop: 01/20/20 16:59 Last Admin: 11/30/19 08:38 Dose: 200 mg Dextrose (Glutose 40%) 18.75 gm PO PRN PRN PRN Reason: BS Below 70 if tolerate po Stop: 01/19/20 11:13 Divalproex Sodium (Depakote Dr) 250 mg PO BID [facility], [facility]–1983; Protocol Stop: 01/25/20 16:59 Last Admin: 11/30/19 08:38 Dose: 250 mg Gemfibrozil (Lopid) 600 mg PO BID [facility], [facility]1983 Stop: 01/20/20 16:59 Last Admin: 11/30/19 08:38 Dose: 600 mg [facility] Stop: 01/18/20 16:29 Last Admin: 11/30/19 06:47 Dose: 10 mg Glucagon (Glucagen) 1 mg IM PRN PRN PRN Reason: BS Below 70 if not tolerate po Stop: 01/19/20 11:13 Ibuprofen (Motrin) 400 mg PO Q4H PRN PRN Reason: Pain (Severe 7-10) Stop: 01/18/20 12:37 Insulin Glargine (Lantus Insulin) 40 units SUBQ HS [facility], [facility]1983 Stop: 01/24/20 20:59 Last Admin: 11/29/19 21:23 Dose: Not Given Insulin Human Lispro (Humalog Insulin Sliding Scale) 0 units SUBQ AC [facility], [facility]1983; Protocol Stop: 01/19/20 11:29 Last Admin: 11/30/19 11:31 Dose: Not Given Lorazepam (Ativan) 0.5 mg PO Q4HR PRN; Protocol PRN Reason: Anxiety Stop: 12/19/19 12:37 Magnesium Hydroxide (Milk Of Magnesia) 30 ml PO HS PRN PRN Reason: Constipation Metformin HCl (Glucophage) 850 mg PO TIDWM [facility] Stop: 01/18/20 16:59 Last Admin: 11/30/19 11:57 Dose: 850 mg Multivitamins/Vitamin C (Theragran) 1 tab PO DAILY [facility] Stop: 01/19/20 08:59 Last Admin: 11/30/19 08:39 Dose: 1 tab Nicotine (Nicotine Transdermal System) 14 mg TD DAILY [facility]1983 Stop: 01/19/20 08:59 Last Admin: 11/30/19 08:39 Dose: Not Given Olanzapine (Zyprexa) 15 mg PO BID [facility], [facility]; Protocol Stop: 01/18/20 16:59 Last Admin: 11/30/19 08:39 Dose: 15 mg Sodium Chloride (Nacl Tab) 2 gm PO BID [facility] Stop: 01/20/20 08:59 Last Admin: 11/30/19 08:38 Dose: 2 gm Zolpidem Tartrate (Ambien) 5 mg PO HS PRN PRN Reason: Insomnia Stop: 01/18/20 12:37 General: weak HEENT: NC/AT, PERRLA Neck: Supple Lungs: CTAB Cardiovascular: RRR, Normal S1, Normal S2 Abdomen: soft Extremities: clear Neurological: no change Internal Medicine Assmt/Plan - Assessment Assessment: 1. DM, poorly controlled 2. HTN 3. Hyponatremia - Plan Plan: continue glucotrol and basal insulin reviewed blood sugar diary d/w r.n. reviewed complete medical records Nutritional Asmnt/Malnutr-PDOC - Dietary Evaluation Malnutrition Findings (Please click <Entered> for more info): Nutritional Asmnt/Malnutrition Start: 08/11/20 14: 27 Text: Status: Complete Freq: Protocol: Document 11/23/19 14:28 JADYN (Rec: 11/23/19 14:31 JADYN [id number]) Nutritional Asmnt/Malnutrition Patient General Information Nutritional Screening Moderate Risk Diagnosis Psychosis, Hold DTO Pertinent Medical Hx/Surgical Hx DM, HTN, Cardiac arrythmia, Depression, Schizophrenia Subjective Information Pt is a 69-year-old female admitted on 11/18 d/t hold for danger to others with striking out at staff, non-compliant behavior and non-redirectable. Pt is eating an estimated 100 % of meals since admit date ( x3 days) Per Meal/Nutrition Activity Record. Dietary is currently providing an estimated 2000 kcals and 110 gm Pro to meet 100+% kcal and 100+% Pro needs. Visited pt in room, she understands she has DM and stays away from sugary foods and sweets, states she will take oral DM medication, but does not like the insulin as the shot hurts . Explained the importance of taking it, pt understands, but still does not want it d/t associated pain. Pt noted to refuse antihyperglycemic medications repeatedly, recommend [facility] 60gm diet to further aid controlling BG levels. ( completed). Anthropometrics HT: 5 FT WT: 115 LB (52.27 kg) BMI: 22.48 (normal) GI/ Skin Integrity GI: WNL, Soft, Flat BM: 8/10 x1 I/O: 1200/Not Noted Skin: WNL, Intact Roberto: 21 Diet Order: Cardiac Estimated Energy Needs: ( Geriatric, CBW) 9487-7730 kcals (25-30 kcals/ kg) 50-65g Pro (1.0-1.2 g/kg) 5367-5527 ml (25-30 ml/kg) Current Diet Order/ [facility] / S.O Can Pertinent Medications Maalox (PRN), Glutose 40% (PRN ), Lopid, Glucotrol, Glucagen (PRN), Levemir Insulin, INS-SS , MOM (PRN), Glucophage, Theragran, NaCl Tab Pertinent Labs POC Glucose (last 24 hours): 272, 158, 126, 352, 130 8/10: Na 123, Cl 90, BUN/Cr 20 /0.68, Glucose 288, AST 44, Alk Phos 128 Nutritional Hx/Data Height 1.52 m Height (Calculated Centimeters) 152.4 Current Weight (lbs) 52.163 kg Weight (Calculated Kilograms) 52.2 Weight (Calculated Grams) 19760.1 [place] Body Weight 100 LB (45.45 kg) % [place] Body Weight 115 Body Mass Index (BMI) 22.4 Weight Status Approriate GI Symptoms Last BM 11/21 x1 Usual diet at home Avoids sweets (per pt statement) Skin Integrity/Comment: Skin: WNL, Intact Roebrto: 21 Current %PO Good (75-100%) Estimated Nutritional Goals BEE in Kcals: Using Current wt Calories/Kcals/Kg 25-30 Kcals Calculated 9647-0299 Protein: Using Current wt Protein g/k.0-1.2 Protein Calculated 50-65 Fluid: ml 8273-1989 ml (25-30 ml/kg) Nutritional Problem 2. Problem Problem Altered nutrition related labs Etiology r/t electrolyte imbalance Signs/Symptoms: aeb labs (11/21) Na 123, Cl 90. 1. Problem Problem Impaired nutrient utilization Etiology r/t endocrine dysfunction Signs/Symptoms: aeb labs (11/21) Glucose 288, POC Glucose (last 24 hours): 272, 158, 126, 352, 130. Malnutrition Related to Morbid Obesity Malnutrition related to morbid obesity No Intervention/Recommendation Comments 1.Recommend [facility] diet Rx ( completed, diet Rx changed). 2.Continue antihyperglycemic medication for glucose control per MD order. Expected Outcomes/Goals Expected Outcomes/Goals 1.PO intake to continue to meet >75% of estimated nutritional needs. 2.Monitor PO intake, wt, nutrition related labs to trend WNL, and skin integrity. 3.F/U as low risk in 7-10 days , 11/29-12/02.
--- NOTE | 2019-11-30 15:44 | Discharge Summary ---
DATE OF DISCHARGE: 11/30/2019 IDENTIFYING INFORMATION: The patient is a 69-year-old female. CHIEF COMPLAINT: "I have no idea." HISTORY OF PRESENT ILLNESS: This is a poor historian. The patient was admitted on hold, danger to others. She was acting agitated, striking out at the staff at the nursing facility, noncompliant, not redirectable and she is conserved by public guardian of the court [facility] with medical history of type 2 diabetes mellitus, asthma, hyperlipidemia, hypertension, cardiac arrhythmia with a history of schizophrenia, major depression. The patient was fully ambulatory, independent with her ADLs with clear speech. The patient was oriented x2. Disorganized thoughts, poor eye contact, labile, angry, hostile, argumentative, resistant to care, paranoid, loud. The patient reports that she does not sleep well or eat well. She denies prior suicide attempt. She was a poor historian. COURSE IN THE HOSPITAL: The patient denies schizoaffective disorder, bipolar type. The patient was continued with medication prior to admission. The patient has a poor judgment. She states to herself. She was on Depakote 125 twice a day. I increased it to 250 mg twice a day. She was continued with Lopid, glipizide for her diabetes, glucagon, insulin. The patient also was given metformin, multivitamin, olanzapine was increased to 50 mg twice a day. The patient progressively got better. She was not acting out. She, however, speak to herself mostly, preoccupied with smoking, so that she was no longer acting out, not agitated, no out of control behavior, we felt she could be discharged to a lesser level of care. The patient able to take care of her ADLs. The patient is not functioning well socially because of her chronic mental illness, but she can express her needs. FINAL DIAGNOSIS: Schizoaffective disorder, bipolar type. MEDICAL DIAGNOSES: Hypertension, diabetes mellitus. As per medical doctor, the patient will be going back to the nursing facility. She has a guardian. EXPECTED OUTCOME: Stable if the patient complies to the above. The patient will follow up with the psychiatrist, primary care physician and therapist. JOB# [id number] [facility]
== END 2019-11-30 16:00 | DRG 885 ==
LOC: GERO 11:44
PROVIDERS: ADMIT Psychiatry & Neurology Psychiatry; ATTEND Psychiatry & Neurology Psychiatry
DX: F25.0 Schizoaffective disorder, bipolar type (principal); E11.65 Type 2 diabetes mellitus with hyperglycemia; E87.1 Hypo-osmolality and hyponatremia; F03.91 Unspecified dementia, unspecified severity, with behavioral disturbance; I10 Essential (primary) hypertension; I49.9 Cardiac arrhythmia, unspecified; F17.200 Nicotine dependence, unspecified, uncomplicated; J45.909 Unspecified asthma, uncomplicated; E78.5 Hyperlipidemia, unspecified; Z20.828 Contact with and (suspected) exposure to other viral communicable diseases
CPT/HCPCS: 36415-UA; 80053-TC; 80061-TC; 82948-90; 83036-90; 85025-TC; G0410; J1815; U0003-CS; Z7610